=== PATIENT | female | born 1945 | race Caucasian/White ===

== ENCOUNTER → 2019-03-27 | Outpatient (CLI) | payer MEDICARE ==
[~2019-03-27] MED LIST: AMBIEN5 MG PO; AMITRIPTYLINE50 MG PO; AMLODIPINE BESY10 MG PO; ATIVAN0.5 MG PO; CALTRATE 600+D1 EACH PO; CARVEDILOL25 MG PO; CLONIDINE HCL0.1 MG PO; FIORICET W/CODE1 CA1 PO; FOSAMAX70 MG PO; LEVOTHYROXINE75 MCG PO; LIPITOR20 MG PO; MAGNESIUM500 MG PO; MELOXICAM15 MG PO; METFORMIN500 MG PO; PROTONIX40 MG PO; QUINAPRIL40 MG PO; REGLAN10 M1 PO; SIMVASTATIN40 MG PO; VITAMIN D2000 IU PO; VOLTAREN100 GM T
--- NOTE | ~2019-03-27 | ST ---
[place], [place] EXERCISE STRESS TEST REPORT NAME: REG PATRICK UNIT #: [id number] ROOM: DOCTOR: ALESSIO NOWAK MD BIRTHDATE: [birth year] DOS: 03/27/2019 LEXISCAN PORTION OF THE LEXISCAN CARDIOLITE Baseline cardiogram, sinus with nonspecific ST-T changes. Lexiscan, the patient had no chest discomfort. Blood pressure was significantly elevated to start with. The patient has not taken her antihypertensive. No new EKG changes. No chest pain. Nuclear images will be reported separately. ALESSIO NOWAK MD CM:STRESS:EXERCISE STRESS TEST REPORT [id number] ALESSIO NOWAK MD
--- NOTE | 2019-03-27 07:16 | NUR ---
INFORMED SIGNED CONSENT OBTAINED FOR LEXISCAN STRESS TEST WITH DR NOWAK. RESTING EKG SINUS TACHYCARDIA HR 105 BP 198/100. PULSE OX 97% LUNGS CLEAR. PT COMPLETED ONE MINUTE OF A LEXISCAN PROTOCOL WITH PT RECEIVING LEXISCAN 0.4MG IV OVER 10 SECONDS. NO ARRHYTMIAS OR ST CHANGES SEEN. PT FELT HOT WITH INJECTION. RECOVERY BP 184/120, TAKEN AT 6 MINS 168/110. TAKEN AT 8 MINS 180/130. PT TOOK CLONIDINE AND ATIVAN FROM HER PURSE. SHE DID NOT BRING WITH HER THE NORVASC, QUINIPRIL OR METOPROLOL. BP TAKEN AGAIN AT 10 MINS 178/122, PT ASYMPTOMATIC. WILL CONTINUE TO MONITOR BP.
--- NOTE | 2019-03-27 07:42 | NUR ---
PT REMAINS ASYMPTOMATIC, SITTING BESIDE HER. BP 180/138.
--- NOTE | 2019-03-27 07:46 | NUR ---
BP 178/128. PT STATES SHE FEELS FINE.
--- NOTE | 2019-03-27 07:57 | NUR ---
DR NOWAK AWARE OF PTS ELEVATED BP. STATES THIS IS HOW SHE IS IN HIS OFFICE. CONTINUE TO MONITOR. PT RESTING COMFORTABLY WITH BESIDE HER. BP 180/120, ASYMPTOMAIC
--- NOTE | 2019-03-27 08:27 | NUR ---
BP 160/100, AWAITING NUCLEAR IMAGES IN STABLE CONDITION, PRESENT. INSTRUCTED TO TAKE HER OTHER 3 BP MEDS WHEN SHE GETS HOME, PT VOICED UNDERSTANDING.
== END | disposition home or self-care (01) ==
LOC: CARD 00:26
DX: R53.81 Other malaise (principal); I20.9 Angina pectoris, unspecified